=== PATIENT | female | born 1960 | race Caucasian/White ===

== ENCOUNTER 2022-07-04 13:12 | Emergency (ER) | payer OTHER ==
[~2022-07-04] VITALS: Ht 162.6 cm; Wt 98.0 kg
[2022-07-04 15:45] VITALS: BP 162/73
[2022-07-04] MEDS ORDERED: KETOROLAC 30MG/ML VIAL IM ONE (15:45)
[2022-07-04] MEDS ORDERED: HYDROCODONE/ACETAMINOPHEN 5/325MG TABLET PO ONE (15:45)
[2022-07-04] MEDS ORDERED: LIDO700A15 TP (17:55)
[2022-07-04] MEDS ORDERED: HYDR-4001 MT (17:55)
[2022-07-04] MEDS ORDERED: NAPR-681 MT (17:55)
== END 2022-07-04 18:25 | disposition home or self-care (01) ==
LOC: ER 13:12
DX: M79.10 Myalgia, unspecified site (principal); W19.XXXA Unspecified fall, initial encounter; Y93.89 Activity, other specified; Y92.89 Other specified places as the place of occurrence of the external cause; Y99.8 Other external cause status; E11.9 Type 2 diabetes mellitus without complications; I10 Essential (primary) hypertension
CPT/HCPCS: 73030; 73100; 73120; 73560; 73620; 96372; 99284; J1885